=== PATIENT | female | born 1985 | race African-American/Black ===

== ENCOUNTER 2020-03-12 06:12 | Emergency (ER) | payer MEDICAID ==
[~2020-03-12] VITALS: Ht 162.6 cm; Wt 77.1 kg
[2020-03-12 07:35] LABS: Basophils # (auto) 0 10 ^3/uL (0-0.2); Basophils % (auto) 0.5 % (0.0-2.0); Eosinophils # (auto) 0 10 ^3/uL (0-0.8); Eosinophils % (auto) 0.6 % (0.0-7.0); Hematocrit 37.8 % (36.0-46.0); Hemoglobin 13.1 g/dL (12.2-16.2); Lymphocytes # (auto) 1.6 10 ^3/uL (0.4-5.4); Lymphocytes % (auto) 25.3 % (10.0-50.0); Mean Corpuscular Hemoglobin 31.2 pg (28.0-32.0); Mean Corpuscular Hgb Conc. 34.6 g/dL (32.0-36.0); Mean Corpuscular Volume 90.2 fL (80.0-100.0); Monocytes # (auto) 0.5 10 ^3/uL (0-1.3); Monocytes % (auto) 7.6 % (0.0-12.0); Neutrophils # (auto) 4.1 10 ^3/uL (1.6-8.6); Platelet Count (auto) 245 10^3/uL (140-450); Red Cell Distribution Width 12.2 % (11.8-14.3); White Blood Cell 6.2 10^3/uL (4.4-10.8)
[2020-03-12 07:37] LABS: Urine Bacteria MOD /hpf (None Seen); Urine Blood Negative /uL (Negative); Urine Mucus FEW (None Seen); Urine Specific Gravity 1.018 (1.001-1.035); Urine WBC 4 /hpf (0 - 5)
[2020-03-12 07:53] LABS: Albumin 3.8 g/dL (3.4-5.0); Calcium 8.7 mg/dL (8.5-10.1); Potassium 3.9 mmol/L (3.5-5.1)
[2020-03-12 07:55] LABS: BUN/Creatinine Ratio 9.5
[2020-03-12 07:58] LABS: Bilirubin, Total 0.8 mg/dL (0.2-1.0); Total Protein 7.7 g/dL (6.4-8.2)
[2020-03-12 09:07] VITALS: BP 117/54
== END 2020-03-12 09:10 | disposition home or self-care (01) ==
LOC: ER 06:12
DX: N39.0 Urinary tract infection, site not specified (principal)
CPT/HCPCS: 36415; 80053; 81001; 83690; 84702; 85025

== ENCOUNTER 2020-06-13 01:45 | Emergency (ER) | payer MEDICAID ==
[~2020-06-13] VITALS: Ht 167.6 cm; Wt 58.1 kg
[2020-06-13 02:05] VITALS: BP 122/82
[2020-06-13] MEDS ORDERED: ONDANSETRON ODT 4 MG TAB PO ONE (02:15)
[2020-06-13] MEDS ORDERED: HYDROcodone-ACET 5/325MG TAB PO ONE (02:15)
== END 2020-06-13 03:37 | disposition home or self-care (01) ==
LOC: EDBD 01:45 → ER 01:51
DX: S83.412A Sprain of medial collateral ligament of left knee, initial encounter (principal); W22.8XXA Striking against or struck by other objects, initial encounter; Y93.89 Activity, other specified; Y92.89 Other specified places as the place of occurrence of the external cause; Y99.8 Other external cause status
CPT/HCPCS: 36415; 73700; 84702; 99284; Q0162

== ENCOUNTER 2020-10-19 07:30 | Emergency (ER) | payer MEDICAID ==
[~2020-10-19] VITALS: Ht 162.6 cm; Wt 61.2 kg
[2020-10-19 10:11] VITALS: BP 116/78
== END 2020-10-19 10:25 | disposition home or self-care (01) ==
LOC: ER 07:30
DX: S05.91XA Unspecified injury of right eye and orbit, initial encounter (principal); H54.61 Unqualified visual loss, right eye, normal vision left eye; A60.00 Herpesviral infection of urogenital system, unspecified; Y04.2XXA Assault by strike against or bumped into by another person, initial encounter; Y93.89 Activity, other specified; Y92.89 Other specified places as the place of occurrence of the external cause; Y99.8 Other external cause status
CPT/HCPCS: 84112; 86592

== ENCOUNTER 2020-11-07 09:53 | Emergency (ER) | payer MEDICAID ==
[~2020-11-07] VITALS: Ht 162.6 cm; Wt 61.2 kg
[2020-11-07 10:34] VITALS: BP 119/79
[2020-11-07] MEDS ORDERED: PENICILLIN G BENZ 1200000 UNITS/2 ML SYRG IM ONE (10:45)
[2020-11-07] MEDS ORDERED: AZITHROMYCIN 250 MG TAB PO ONE (10:45)
== END 2020-11-07 11:50 | disposition home or self-care (01) ==
LOC: ER 09:53
DX: A53.9 Syphilis, unspecified (principal); A74.9 Chlamydial infection, unspecified; Z98.890 Other specified postprocedural states
CPT/HCPCS: 81025; 96372; 99283; J0561